=== PATIENT | male | born 1960 | race Caucasian/White ===

== ENCOUNTER 2017-11-20 22:05 | Emergency (ER) | payer OTHER ==
[2017-11-20 22:09] VITALS: BP 145/83; PULSE 78; TEMP 98.2; BMI 25.8
--- NOTE | 2017-11-20 23:44 | PDOC ---
History of Present Illness - General Chief Complaint: Headache Stated Complaint: HEADACHE - History of Present Illness Initial Comments: Patient is a 57 year old male, with a significant no significant pmh, who presents to the emergency department complaining of L frontal PENDLETON for past day. Pt states pain began in AM yesterday, behind the left eye. Pt states pain has been intermittent, with mild relief with oral tylenol. Pt with no hx of PENDLETON, migraine or any other neurologic conditions. Denies any vision changes, nasal congestion, tearing, FNDs or any other neurologic symptoms. Pt denies f/c/n/v/d , CP, ab pain, back pain, LE edema, SOB, cough, diarrhea constipation, dysuria. Denies photophobia, phonophobia. Pt also complaining of mild posterior neck pain , worse with movement. Allergies: None Past surgical history: None Social History: Social drinker 2-3 drinks per week; denies smoking, drug use PMD: Dr. Pete Weber 11/20/17 23:42 Past History - Past Medical History Allergies/Adverse Reactions: Allergies Allergy/AdvReac Type Severity Reaction Status Date / Time No Known Allergies Allergy Verified 11/20/17 22:07 Home Medications: Ambulatory Orders Multivitamin with Minerals [Multiple Vitamin] 1 mg PO DAILY 10/29/11 Ibuprofen [Motrin -] 600 mg PO Q4H #20 tablet 11/21/17 COPD: No - Suicide/Smoking/Psychosocial Hx Smoking History: Never smoked Review of Systems - Review of Systems Comments:: GENERAL/CONSTITUTIONAL: No fever or chills. No weakness. HEAD, EYES, EARS, NOSE AND THROAT: No change in vision. No ear pain or discharge. No sore throat. CARDIOVASCULAR: No chest pain or shortness of breath RESPIRATORY: No cough, wheezing, or hemoptysis. GASTROINTESTINAL: No nausea, vomiting, diarrhea or constipation. GENITOURINARY: No dysuria, frequency, or change in urination. MUSCULOSKELETAL: No joint or muscle swelling or pain. No neck or back pain. SKIN: No rash NEUROLOGIC: +PENDLETON; no vertigo, loss of consciousness, or change in strength/ sensation. ENDOCRINE: No increased thirst. No abnormal weight change HEMATOLOGIC/LYMPHATIC: No anemia, easy bleeding, or history of blood clots. ALLERGIC/IMMUNOLOGIC: No hives or skin allergy. 11/21/17 00:25 *Physical Exam - Vital Signs Last Vital Signs Temp Pulse Resp BP Pulse Ox 98.2 F 78 18 145/83 97 11/20/17 22:07 11/20/17 22:07 11/20/17 22:07 11/20/17 22:07 11/20/17 22:07 - Physical Exam Comments: GENERAL: MIddle aged man, Awake, alert, and fully oriented, in mild distress HEAD: No signs of trauma, normocephalic, atraumatic EYES: BL conjuctival injection, PERRLA, EOMI, sclera anicteric ENT: Auricles normal inspection, hearing grossly normal, nares patent, oropharynx clear without exudates. Moist mucosa NECK: Normal ROM, supple, no lymphadenopathy, JVD, or masses LUNGS: No distress, speaks full sentences, clear to auscultation bilaterally HEART: Regular rate and rhythm, normal S1 and S2, no murmurs, rubs or gallops, peripheral pulses normal and equal bilaterally. ABDOMEN: Soft, nontender, normoactive bowel sounds. No guarding, no rebound. No masses EXTREMITIES : Normal inspection, Normal range of motion, no edema. No clubbing or cyanosis. NEUROLOGICAL: Cranial nerves II through XII grossly intact. Normal speech, normal gait, no focal sensorimotor deficits SKIN: Warm, Dry, normal turgor, no rashes or lesions noted 11/21/17 00:25 Medical Decision Making - Medical Decision Making Patient is a 57 year old male, with a significant no significant pmh, who presents to the emergency department complaining of L frontal PENDLETON for past day. DDX includes tension PENDLETON, cluster PENDLETON, migraine, referred neck pain. Plan: - Pain control with oral tylenol - No further imaging required - Will likely require outpt f/u with Dr. Weber for chronic pain control as needed if pain persistent 11/21/17 00:26 Pain improved with tylenol/motrin. Will discharge home with outpt f/u with Dr. Weber. 11/21/17 01:30 *DC/Admit/Observation/Transfer Diagnosis at time of Disposition: Tension headache - Discharge Dispostion Disposition: HOME Condition at time of disposition: Good Decision to Admit order: No - Prescriptions Prescriptions: Ibuprofen [Motrin -] 600 mg PO Q4H #20 tablet - Referrals Referrals: Johnnie Weber MD [Primary Care Provider] - 1 week - Patient Instructions Printed Discharge Instructions: Tension Headache Additional Instructions: During your visit to the [facility] ED, you were evaluated for headache. You received tylenol and motrin for your headache with improvement in your pain symptoms. You are being discharged home with outpatient follow-up with your primary care provider. Please take tylenol 650mg every four hours if you experience fevers or aches until your symptoms resolve. You may also take motrin 400mg once every 4 hours, alternating with tylenol until your pain symptoms resolve. If you experience any of the following symptoms, please return to the ED: - Persistent fevers/chills >3 days - Significant worsening of your headache - Changes in vision, numbness/weakness in any extremities, or persistent dizziness/loss of consciousness - New neck stiff, sensitivity to light - Any new or concerning symptoms - Post Discharge Activity
[2017-11-20] MEDS ORDERED: ACETAMINOPHEN 325 MG TABLET (FP) PO ONE (23:58)
--- NOTE | 2017-11-21 00:54 | PDOC ---
Attending Attestation - Resident Resident Name: Yoni Vazquez - ED Attending Attestation I have performed the following: I have examined & evaluated the patient, The case was reviewed & discussed with the resident, I agree w/resident's findings & plan, Exceptions are as noted - HPI HPI: 11/21/17 00:59 Headache for 1 day. - Physicial Exam PE: 11/21/17 00:59 *Physical Exam General Appearance: Yes: Appropriately Dressed. No: Apparent Distress, Intoxicated HEENT: positive: EOMI, ERNESTO, Normal ENT Inspection, Normal Voice, TMs Normal, Pharynx Normal. negative: Pale Conjunctivae, Photophobia, Scleral Icterus (R), Scleral Icterus (L) Neck: positive: Trachea midline, Normal Thyroid, Supple. negative: Tender, Rigid, Carotid bruit, Stridor, Lymphadenopathy (R), Lymphadenopathy (L), Thyromegaly Respiratory/Chest: positive: Lungs Clear, Normal Breath Sounds. negative: Chest Tender, Respiratory Distress, Accessory Muscle Use, Labored Respiration, RES, Crackles, Rales, Rhonchi, Stridor, Wheezing, Dullness Cardiovascular: positive: Regular Rhythm, Regular Rate, S1, S2. negative: Edema , JVD, Murmur, Bradycardia, Tachycardia Vascular Pulses: Dorsalis-Pedis (R): 2+, Doralis-Pedis (L): 2+ Gastrointestinal/Abdominal: positive: Normal Bowel Sounds, Flat, Soft. negative : Tender, Organomegaly, Pulsatile Mass, Increased Bowel Sounds, Decreased BS, Distended, Guarding, Rebound, Hernia, Hepatomegaly, Spleenomegaly Lymphatic: negative: Adenopathy, Tenderness Musculoskeletal: positive: Normal Inspection. negative: CVA Tenderness, Decreased Range of Motion Extremity: positive: Normal Capillary Refill, Normal Inspection, Normal Range of Motion, Pelvis Stable. negative: Tender, Pedal Edema, Swelling, Erythema Integumentary: positive: Normal Color, Dry, Warm. negative: Cyanotic, Erythema , Jaundice, Rash Neurologic: positive: family advocate II-XII NML intact, Fully Oriented, Alert, Normal Mood/ Affect, Motor Strength 5/5. negative: EOM Palsy, Facial Droop, Sensory Deficit <Thony Damon - Last Filed: 11/21/17 00:59> - HPI HPI: 05/25/18 01:29 The patient is a 57 year old male with no significant past medical history who presents to the ED with 1 day of headache. He reports a dull ache behind his left eye with associated posterior neck pain. He denies any modifying factors, history of migraine or headaches in the past. Denies any associated nasal congestion or sinus pain. Denies any fevers or chills. - Medical Decision Making 11/21/17 01:30 Documentation prepared by Jodee Kennedy, acting as medical photographer for Thony Damon DO. <Jodee Kennedy - Last Filed: 11/21/17 01:30>
[2017-11-21] MEDS ORDERED: IBUPROFEN 600 MG TABLET (FP) PO ONE ×2 (01:00→01:45)
[2017-11-21] MEDS ORDERED: ACETAMINOPHEN 325 MG TABLET (FP) ONE (01:45)
== END 2017-11-21 02:07 | disposition home or self-care (01) ==
LOC: JER 22:05
DX: G44.209 Tension-type headache, unspecified, not intractable (principal)
CPT/HCPCS: 99282-25